=== PATIENT | female | born 1945 | race Caucasian/White ===

== ENCOUNTER 2023-02-10 01:03 | Day surgery (SDC) | payer MEDICARE, SELFPAY ==
[2023-01-28 08:51] VITALS: BMI 46.8
[2023-02-10 06:26] VITALS: BP 185/90; PULSE 76; RESP 18; TEMP 36.6; O2SAT 99; BMI 47.0
[2023-02-10] MEDS: LACTATED RINGERS 1,000 ML 150 ML IV CONT (06:42)
--- NOTE | 2023-02-10 07:21 | P.PNAN_ITS ---
Anes - Initial Pre Proc Eval Procedure: Operation Date: 02/10/23 07:30 Proposed Procedures p Screening Colonoscopy - Paulo Ling MD Date/Time: 02/10/23 07:21 Surgeon: Paulo Ling MD Pre Op Diagnosis: Hx of colon polyp Patient Data Age: 77 Gender: F Height: 1.6 m Weight: 120.4 kg Last Vital Signs Temp 97.8 F 02/10/23 06:26 Pulse 76 02/10/23 06:26 Resp 18 02/10/23 06:26 BP 185/90 H 02/10/23 06:26 Pulse Ox 99 02/10/23 06:26 O2 Del Method Room Air 02/10/23 06:26 Allergies Allergy/AdvReac Type Severity Reaction Status Date / Time Sulfa (Sulfonamide Allergy Unknown Unknown Verified 01/28/23 08:47 Antibiotics) codeine AdvReac Unknown Nausea and Verified 01/28/23 08:47 Vomiting Home Medications Medication Instructions Recorded Confirmed Type ascorbic acid (vitamin C) 1,000 mg 1 g PO DAILY 01/28/23 01/28/23 History tablet calcium carb,cit 315 mg-vitamin D3 1 tablet PO DAILY 01/28/23 01/28/23 History 250 unit-phytosterols 200 mg tablet (Citracal-D3 Plus [employer]) escitalopram oxalate 20 mg tablet 20 mg PO DAILY 01/28/23 01/28/23 History fexofenadine 30 mg tablet 180 mg PO DAILY 01/28/23 01/28/23 History hydrochlorothiazide 25 mg tablet 25 mg PO DAILY 01/28/23 01/28/23 History losartan 100 mg tablet 100 mg PO DAILY 01/28/23 01/28/23 History multivitamin-ferrous 1 tablet PO DAILY 01/28/23 01/28/23 History fumarate-folic acid 18 mg-400 mcg tablet ([employer]) Patient hx anesthesia problems: none Family hx anesthesia problems: none Results Review: All pre-operative results and documents have been reviewed as part of the pre- operative evaluation. [facility] Social History Social History (System 11/06/21 @ 11:39 by Jesse Aguirre) Smoking status: Never smoker Alcohol intake: current Spiritual care concerns: No Anes - Eval Final PreProcedure Day of Procedure 02/10/23 07:21 Patient weight: morbidly obese Heart: regular rate and rhythm Lungs: clear to auscultation Airway: Mallampati scale class III Neurological: alert and oriented Last oral intake: >/= 8 hours ASA classification: III Emergent: no Anesthetic plan: proceed Anesthesia type and monitoring: general GIVS and standard monitoring Results Review: All pre-operative results and documents have been reviewed as part of the pre- operative evaluation. Informed Consent: The patient's anesthetic plan and its attendant risks and benefits were discussed with the patient/family/POA. Questions were solicited and answers provided to the satisfaction of the patient/family/POA.
--- NOTE | 2023-02-10 07:27 | PM.HPGS ---
History of Present Illness History of Present Illness Consent: Risks, benefits, and alternatives have been discussed and questions answered. Patient agrees to proceed with procedure. Chief complaint: Hx of colon polyp Narrative: Brit Li is a 77 year old female Presents for screening colonoscopy. Patient's current weight appetite and bowel movements are normal. She denies abdominal pain. She has had no bleeding. Previous colonoscopy 2019 revealed a colon polyp. Review of Systems Review of Systems: Review of systems noncontributory. [facility] Social History Social History (System 11/06/21 @ 11:39 by Jesse Aguirre) Smoking status: Never smoker Alcohol intake: current Spiritual care concerns: No Meds Home Medications and Allergies Home Medications Medication Instructions Recorded Confirmed Type ascorbic acid (vitamin C) 1,000 mg 1 g PO DAILY 01/28/23 01/28/23 History tablet calcium carb,cit 315 mg-vitamin D3 1 tablet PO DAILY 01/28/23 01/28/23 History 250 unit-phytosterols 200 mg tablet (Citracal-D3 Plus [employer]) escitalopram oxalate 20 mg tablet 20 mg PO DAILY 01/28/23 01/28/23 History fexofenadine 30 mg tablet 180 mg PO DAILY 01/28/23 01/28/23 History hydrochlorothiazide 25 mg tablet 25 mg PO DAILY 01/28/23 01/28/23 History losartan 100 mg tablet 100 mg PO DAILY 01/28/23 01/28/23 History multivitamin-ferrous 1 tablet PO DAILY 01/28/23 01/28/23 History fumarate-folic acid 18 mg-400 mcg tablet (Centrum Women) Allergies Allergy/AdvReac Type Severity Reaction Status Date / Time Sulfa (Sulfonamide Allergy Unknown Unknown Verified 01/28/23 08:47 Antibiotics) codeine AdvReac Unknown Nausea and Verified 01/28/23 08:47 Vomiting Vital Signs Vital Signs - 24 hr 02/10/23 06:26 Temperature 97.8 F Pulse Rate 76 Respiratory Rate 18 Blood Pressure 185/90 H Pulse Oximetry 99 Oxygen Delivery Room Air Exam Narrative: Physical exam reveals patient be alert. Vital signs stable. HEENT exam is unremarkable. Patient is anicteric. Lungs are clear to auscultation and percussion. Heart is without murmur. Abdomen is obese. Bowel sounds present soft nontender with no organomegaly. Digital external rectal exam is normal. Assessment and Plan Assessment and plan (1) Encounter for screening colonoscopy: Code(s): Z12.11 - Encounter for screening for malignant neoplasm of colon Status: Acute Assessment and Plan: Patient presents for screening colonoscopy. She does have a distant history of colon polyps. Further recommendations may be given after endoscopy.
[2023-02-10 07:51] VITALS: BP 99/69; PULSE 80; RESP 20; O2SAT 99
[2023-02-10 08:01] VITALS: BP 130/70; PULSE 76; RESP 20; O2SAT 99
[2023-02-10 08:10] VITALS: BP 149/56; PULSE 72; RESP 20; O2SAT 99
== END 2023-02-10 08:23 | disposition home or self-care (01) ==
PROVIDERS: PCP Physician Assistant; Visit Provider Internal Medicine Gastroenterology
PROC: 0DJD8ZZ Inspection of Lower Intestinal Tract, Via Natural or Artificial Opening Endoscopic (ICD-10-PCS; CPT 45378; principal; 2023-02-10 07:30)
DX: Z12.11 Encounter for screening for malignant neoplasm of colon (principal); K64.8 Other hemorrhoids; K57.30 Diverticulosis of large intestine without perforation or abscess without bleeding; Z86.010 Personal history of colon polyps; E66.01 Morbid (severe) obesity due to excess calories; Z68.42 Body mass index [BMI] 45.0-49.9, adult
CPT/HCPCS: G0105; J2704; J7120

== ENCOUNTER → 2023-02-16 14:51 | Outpatient (CLI) | payer MEDICARE, SELFPAY ==
--- NOTE | ~2023-02-16 | MM_ITS ---
EXAMINATION: MM screening [facility] BI w jeanna HISTORY: Screening mammogram, family history of breast cancer in her sister. TECHNIQUE: Craniocaudal and mediolateral oblique 3-D tomosynthesis images were obtained and synthetic 2-D images were generated. CAD analysis was submitted and interpreted. COMPARISON: 10/02/2019, 09/18/2018, 09/07/2018, 06/30/2017 BREAST PARENCHYMAL COMPOSITION: There are scattered areas of fibroglandular density. FINDINGS: Bilateral intramammary lymph nodes are noted. No suspicious mass, calcification, or archite ctural distortion are identified in either breast to suggest malignancy. There has been no suspicious interval change. IMPRESSION: 1. No mammographic evidence of malignancy. 2. Recommend routine screening mammography in one year. BI-RADS Category 2: Benign finding(s). Reviewed, dictated and finalized at location A.
== END ==
PROVIDERS: PCP Physician Assistant; Visit Provider Physician Assistant
DX: Z12.31 Encounter for screening mammogram for malignant neoplasm of breast (principal)
CPT/HCPCS: 77063; 77067

== ENCOUNTER 2024-07-17 12:13 | Outpatient (CLI) | payer MEDICARE, SELFPAY ==
--- NOTE | ~2024-07-17 | MM_ITS ---
EXAMINATION: MM screening [facility] w jeanna HISTORY: Screening TECHNIQUE: Craniocaudal and mediolateral oblique 3-D tomosynthesis images were obtained and synthetic 2-D images were generated. CAD analysis was submitted and interpreted. COMPARISON: Comparison to multiple prior studies sequentially, with oldest reviewed study dated 02/23. BREAST PARENCHYMAL COMPOSITION: Not dense: There are scattered areas of fibroglandular density. FINDINGS: Stable prominent right axillary lymph nodes allowing for differences of technique. There is no evidence of suspicious mass, calcification, or architectural distortion to suggest malignancy in either breast. There has been no suspicious interval change. IMPRESSION: 1. No mammographic evidence of malignancy. 2. Recommend routine screening mammography in one year. BI-RADS Category 2: Benign finding(s). Reviewed, dictated and finalized at location B.
== END 2024-07-17 12:14 | disposition home or self-care (01) ==
LOC: MICIMG 12:14
PROVIDERS: PCP Physician Assistant; Visit Provider Physician Assistant
DX: Z12.31 Encounter for screening mammogram for malignant neoplasm of breast (principal)
CPT/HCPCS: 77063; 77067